=== PATIENT | male | born 1995 | race Caucasian/White ===

== ENCOUNTER 2016-07-05 11:36 | Emergency (ER) | payer SELFPAY | END 2016-07-05 14:47 | disposition left against medical advice (07) | LOC: UCEAST 11:36 | DX: R11.10 Vomiting, unspecified (principal); Z53.20 Procedure and treatment not carried out because of patient's decision for unspecified reasons ==

== ENCOUNTER 2017-11-24 17:17 | Emergency (ER) | payer OTHER ==
[2017-11-24] MEDS ORDERED: Ibuprofen TAB* 400 MG PO ONE (17:45)
[2017-11-24 17:49] VITALS: BP 154/96
--- NOTE | 2017-11-24 18:05 | RAD ---
INDICATION: Left elbow injury. TECHNIQUE: 4 views of the left elbow were obtained. FINDINGS: The bones are normal alignment. There is a joint effusion present. On 2 views there is a faint radiolucent line projecting across the radial head most consistent with a nondisplaced fracture. IMPRESSION: NONDISPLACED RADIAL HEAD FRACTURE.
--- NOTE | 2017-11-24 18:10 | UC ---
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 He tells me that he was skateboarding and tried to do a trick. Fell and landed directly on his left elbow. Has had pain since. He has a sling from his RIGHT elbow injury awhile ago - he is currently using this for his left. Denies numbness or tingling. - History of Current Complaint Chief Complaint: UCUpperExtremity Stated Complaint: ELBOW INJURY Time Seen by Provider: 11/24/17 18:08 Hx Obtained From: Patient Severity Initially: Severe Severity Currently: Severe Pain Intensity: 8 Pain Scale Used: 0-10 Numeric - Allergies/Home Medications Allergies/Adverse Reactions: Allergies Allergy/AdvReac Type Severity Reaction Status Date / Time SEASONAL ENVIRONMENTAL Allergy Unknown Uncoded 11/24/17 17:50 ALLERGIES Reaction Details PMH/Surg Hx/FS Hx/Imm Hx - Additional Past Medical History Additional PMH: Chronic back pain Previously Healthy: Yes Cardiovascular History: Hypertension - Surgical History Surgical History: Yes Surgery Procedure, Year, and Place: HERNIA REPAIR AGE 1 MONTH, [facility]. TONSILECTOMY - Family History Known Family History: Positive: Cardiac Disease, Hypertension, Diabetes - Social History Lives: With Family Alcohol Use: None Substance Use Type: None Smoking Status (MU): Never Smoked Tobacco Have You Smoked in the Last Year: No - Immunization History Vaccination Up to Date: Yes Review of Systems Constitutional: Negative Skin: Negative Respiratory: Negative Cardiovascular: Negative Neurovascular: Negative Musculoskeletal: Other: - Left elbow pain Neurological: Negative Psychological: Negative All Other Systems Reviewed And Are Negative: Yes Physical Exam - Summary Physical Exam Summary: GENERAL: NAD. Obese. Holding left elbow flexed against abdomen. SKIN: No rashes, sores, lesions, or open wounds. NECK: Supple. Nontender. No lymphadenopathy. CHEST: No accessory muscle use. Breathing comfortably and in no distress. CV: RRR. Without m/r/g. Pulses intact radial and ulnar. MSK: Left elbow with full flexion and extension to about 10-20deg before pain stops him. TTP about left elbow, but worse over radial head. Foreclosure Specialist strength intact. No edema or obvious bony deformities. NEURO: Alert. Sensations intact hand and all fingers. PSYCH: Age appropriate behavior. Triage Information Reviewed: Yes Vital Signs: Initial Vital Signs Temp 98.2 F 11/24/17 17:46 Pulse 113 11/24/17 17:46 Resp 17 11/24/17 17:46 BP 154/96 11/24/17 17:46 Pulse Ox 100 11/24/17 17:46 Elbow Pain Course/Dx - Course Course Of Treatment: XR: IMPRESSION: NONDISPLACED RADIAL HEAD FRACTURE. Sling applied and advised to keep as immobile as possible until he can f/u with Orthopedics tomorrow. He has an rx for flexeril, but says that he hasn't taken this in months - therefore I will rx him Tramadol and advise him not to take this with his flexeril due to possible adverse reaction. iSTOP Reference #: [id number] and ok - Differential Dx/Diagnosis Provider Diagnoses: LEFT NONDISPLACED RADIAL HEAD FRACTURE Discharge - Sign-Out/Discharge Documenting (check all that apply): Discharge/Admit/Transfer - Discharge Plan Condition: Stable Disposition: HOME Prescriptions: traMADol TAB* [Ultram*] 50 mg PO Q12H PRN #10 tab MDD 2 PRN Reason: Pain Patient Education Materials: Elbow Fracture (ED) Referrals: Jere GARCIA,Brendan Mendes [Primary Care Provider] - Aguilar Romeo MD [Medical Doctor] - As Soon As Possible Additional Instructions: If you develop a fever, shortness of breath, chest pain, new or worsening symptoms - please call your PCP or go to the ED. Your blood pressure was high at todays visit. Please see your primary provider within 4 weeks for recheck and re-evaluation. 1) Rest, Ice, and Elevate your elbow as much as possible 2) Use the sling to stay immobile 3) Please call Orthopedics at the number below to schedule a follow up appointment as soon as possible - Billing Disposition and Condition Condition: STABLE Disposition: Home
[2017-11-24] MEDS ORDERED: traMADol TAB* 50 MG PO ONE (18:19)
== END 2017-11-24 18:28 | disposition home or self-care (01) ==
LOC: UCEAST 17:17
DX: S52.125A Nondisplaced fracture of head of left radius, initial encounter for closed fracture (principal); V00.131A Fall from skateboard, initial encounter; Y93.51 Activity, roller skating (inline) and skateboarding; Y92.9 Unspecified place or not applicable; I10 Essential (primary) hypertension; Z82.49 Family history of ischemic heart disease and other diseases of the circulatory system; Z83.3 Family history of diabetes mellitus
CPT/HCPCS: 99213; A9270-GY; G0463

== ENCOUNTER 2018-09-03 14:22 | Emergency (ER) | payer OTHER ==
[2018-09-03] MEDS ORDERED: Cyclobenzaprine TAB* 10 MG PO ONE (15:02)
--- NOTE | 2018-09-03 15:08 | ED ---
Upper Extremity Pain - HPI Summary HPI Summary: 23 year old male presents to the emergency department for evaluation of pain and tenderness on his left anterior chest wall. Pt states he was lifting a tire when the pain first started earlier today. He rates it a 8/10. Pt took OTC tylenol for the pain with no improvement. He states moving his arms makes the pain worse. The pain does not radiate to his arm, neck, or back. He denies SOB, numbness, and tingling. is chest wall pain and not chest pain. no risk factor for CT. - History of Current Complaint Chief Complaint: EDChestWallPain Stated Complaint: CHEST PAIN PER PT Time Seen by Provider: 09/03/18 14:34 Hx Obtained From: Patient - Allergies/Home Medications Allergies/Adverse Reactions: Allergies Allergy/AdvReac Type Severity Reaction Status Date / Time SEASONAL ENVIRONMENTAL Allergy Unknown Uncoded 09/03/18 14:27 ALLERGIES Reaction Details Home Medications: Home Medications Acetaminophen [Tylenol Extra Strength] 500 mg PO Q8H PRN 09/03/18 [History Confirmed 09/03/18] FLUoxetine CAP* [Prozac CAP*] 20 mg PO DAILY 09/03/18 [History Confirmed ] Lisinopril 20 mg PO DAILY 09/03/18 [History Confirmed 09/03/18] PMH/Surg Hx/FS Hx/Imm Hx Previously Healthy: Yes Endocrine/Hematology History: Denies: Hx Diabetes, Hx Thyroid Disease Cardiovascular History: Reports: Hx Hypertension Respiratory History: Denies: Hx Asthma, Hx Chronic Obstructive Pulmonary Disease (COPD) GI History: Denies: Hx Ulcer Sensory History: Denies: Hx Contacts or Glasses, Hx Hearing Aid Opthamlomology History: Denies: Hx Contacts or Glasses - Surgical History Surgery Procedure, Year, and Place: HERNIA REPAIR AGE 1 MONTH, [facility]. TONSILECTOMY Hx Anesthesia Reactions: No Infectious Disease History: No Infectious Disease History: Denies: Hx Clostridium Difficile, Hx Hepatitis, Hx Human Immunodeficiency Virus (HIV), Hx of Known/Suspected MRSA, Hx Shingles, Hx Tuberculosis, Hx Known/ Suspected VRE, Hx Known/Suspected VRSA, History Other Infectious Disease, Traveled Outside the [place] in Last 30 Days - Family History Known Family History: Positive: Cardiac Disease, Hypertension, Diabetes - Social History Alcohol Use: None Substance Use Type: Reports: None Smoking Status (MU): Never Smoked Tobacco Have You Smoked in the Last Year: No Review of Systems Negative: Fever, Chills, Fatigue, Skin Diaphoresis Positive: Chest Pain - tenderness to left chest. Negative: Palpitations Negative: Shortness Of Breath Negative: Vomiting, Diarrhea, Nausea Negative: Headache, Weakness, Paresthesia, Numbness All Other Systems Reviewed And Are Negative: Yes Physical Exam Triage Information Reviewed: Yes Vital Signs On Initial Exam: Initial Vitals Temp Pulse Resp BP Pulse Ox 98.7 F 105 18 130/93 99 09/03/18 14:24 09/03/18 14:24 09/03/18 14:24 09/03/18 14:24 09/03/18 14:24 Vital Signs Reviewed: Yes Appearance: Positive: Well-Appearing, No Pain Distress, Well-Nourished Skin: Positive: Warm, Skin Color Reflects Adequate Perfusion, Dry Head/Face: Positive: Normal Head/Face Inspection Eyes: Positive: Normal, EOMI Neck: Positive: Supple, Nontender Respiratory/Lung Sounds: Positive: Clear to Auscultation, Breath Sounds Present , Other - tenderness on right side of chest Cardiovascular: Positive: Normal, RRR Musculoskeletal: Positive: Normal, Strength/ROM Intact, Other - tenderness to palpation along the left chest wall Neurological: Positive: Normal, Sensory/Motor Intact, Alert, Oriented to Person Place, Time Psychiatric: Positive: Normal, Affect/Mood Appropriate Diagnostics - Vital Signs Vital Signs Temp Pulse Resp BP Pulse Ox 09/03/18 14:24 98.7 F 105 18 130/93 99 - Laboratory Lab Statement: Any lab studies that have been ordered have been reviewed, and results considered in the medical decision making process. Course/Dx - Course Course Of Treatment: 23 year old pt presents with left chest wall pain after lifting a heavy object earlier today. He denies any radiation, SOB, N/V, and numbness. There was no direct trauma to the area. His exam reveals tenderness to the left chest wall and is otherwise unremarkeble. Pt is likely experiencing muscle strain from heavy lifting. He was prescribed 10mg cyclobenzaprine to take three times a day as needed for pain. He can continue to use OTC ibuprofen/ tylenol every 6 hours as needed. Recommended warm compresses and stretching to the area. Pt to follow up with PCP as needed. - Diagnoses Differential Diagnosis/HQI/PQRI: Positive: Hematoma, Laceration, Strain, Sprain Provider Diagnoses: Chest wall muscle strain Discharge - Sign-Out/Discharge Documenting (check all that apply): Patient Departure Patient Received Moderate/Deep Sedation with Procedure: No - Discharge Plan Condition: Stable Disposition: HOME Prescriptions: Cyclobenzaprine TAB* [Flexeril 10 MG TAB*] 10 mg PO TID PRN #5 tab PRN Reason: Pain Patient Education Materials: Chest Wall Pain (ED) Referrals: Sulma Magallanes PA [Primary Care Provider] - Additional Instructions: Take muscle relaxers three times a day Use ibuprofen or Tylenol for pain every 6 hours heat area, move as much as possible Follow up with primary within 5 days Return to ED if develop any new or worsening symptoms - Billing Disposition and Condition Condition: STABLE Disposition: Home
[2018-09-03 15:19] VITALS: BP 146/97
== END 2018-09-03 15:18 | disposition home or self-care (01) ==
LOC: ED 14:22
DX: I10 Essential (primary) hypertension (principal); Z79.899 Other long term (current) drug therapy; S29.011A Strain of muscle and tendon of front wall of thorax, initial encounter; X50.0XXA Overexertion from strenuous movement or load, initial encounter; X50.9XXA Other and unspecified overexertion or strenuous movements or postures, initial encounter
CPT/HCPCS: 99282; A9270-GY